=== PATIENT | female | born 1975 | race Caucasian/White ===

== ENCOUNTER 2016-05-16 09:10 | Emergency (ER) | payer BC ==
[2016-05-16 10:08] VITALS: BP 125/75
--- NOTE | 2016-05-16 10:21 | UC ---
Ear Complaint HPI - HPI Summary HPI Summary: terrible left ear pain started 2 nights ago. Progressive worsening. No URI symptoms. No trauma. No fever. No drainage. Now pain extends down below left mandible. Hurts to push on outside of ear. - History of Current Complaint Chief Complaint: UCEar Stated Complaint: LEFT EAR PAIN Time Seen by Provider: 05/16/16 10:07 Hx Obtained From: Patient Hx Last Menstrual Period: 05/14/16 Onset/Duration: Gradual Onset, Lasting Days - 2 Severity Initially: Mild Severity Currently: Severe Aggravating Factors: Nothing Alleviating Factors: Heat Associated Signs/Symptoms: Negative: Discharge, Hearing Loss, Foreign Body Sensation, Trauma to Ear, Swelling @, URI Symptoms - Allergies/Home Medications Allergies/Adverse Reactions: Allergies Allergy/AdvReac Type Severity Reaction Status Date / Time Edetic Acid [From Diprivan] Allergy Intermediate Tachycardia Verified 05/16/16 10:01 Egg Phospholipids Allergy Intermediate Tachycardia Verified 05/16/16 10:01 [From Diprivan] Glycerin [From Diprivan] Allergy Intermediate Tachycardia Verified 05/16/16 10: 01 Latex Allergy Intermediate Hives Verified 05/16/16 10:01 Propofol [From Diprivan] Allergy Intermediate Tachycardia Verified 05/16/16 10: 01 Home Medications: Home Medications Ibuprofen TAB* [Advil TAB*] 400 mg PO Q6H PRN 05/16/16 [History Confirmed ] Megestrol TAB* [Megace TAB*] 40 mg PO DAILY 05/16/16 [History Confirmed 05/16/16 ] PMH/Surg Hx/FS Hx/Imm Hx Previously Healthy: Yes Endocrine History Of: Reports: Thyroid Disease - Hypothyroidism Denies: Diabetes Cardiovascular History Of: Denies: Hypertension, Pacemaker/ICD GI/ History Of: Denies: Renal Disease - Surgical History Surgical History: Yes Surgery Procedure, Year, and Place: gallbladder, stent placed in pancrease Mar 2012-removed . 2 TUMORS REMOVE FROM UTERUS IN 03/2015. 8 LAPAROSCOPY - Family History Known Family History: Negative: Renal Disease, Seizure Disorder - Social History Occupation: Employed Full-time Lives: With Family Alcohol Use: Rare Substance Use Type: None Smoking Status (MU): Never Smoked Tobacco - Immunization History Most Recent Influenza Vaccination: Not the Season Review of Systems Constitutional: Negative Skin: Negative Eyes: Negative ENT: Ear Ache Respiratory: Negative Cardiovascular: Negative Gastrointestinal: Negative Genitourinary: Negative Motor: Negative Neurovascular: Negative Musculoskeletal: Negative Neurological: Negative Psychological: Negative All Other Systems Reviewed And Are Negative: Yes Physical Exam Triage Information Reviewed: Yes Appearance: Well-Appearing, Well-Nourished, Pain Distress - crying with pain, holding warm compress on ear Vital Signs: Initial Vital Signs Temp 98.6 F 05/16/16 10:02 Pulse 99 05/16/16 10:02 Resp 20 05/16/16 10:02 BP 125/75 05/16/16 10:02 Pulse Ox 100 05/16/16 10:02 Vital Signs Reviewed: Yes Eye Exam: Normal ENT: Positive: Pharynx normal, Nasal congestion, TMs normal, Other: - left ear canal is reddened and swollen. There is no rash or blistering appearance inside or outside ear canal. No palpable swollen nodes, though she says it is tender to touch in left submandib area. Negative: TM bulging, TM dull, TM red, Tonsillar swelling, Tonsillar exudate, Trismus, Muffled/hoarse voice Neck exam: Normal Respiratory Exam: Normal Cardiovascular Exam: Normal Musculoskeletal Exam: Normal Neurological Exam: Normal Psychological Exam: Normal Skin Exam: Normal Ear Complaint Course/Dx - Differential Dx/Diagnosis Differential Diagnosis/HQI/PQRI: Mastoiditis, Otitis Externa, Otitis Media, Trigeminal Nueralgia, Other - zoster Provider Diagnoses: otitis externa Discharge - Discharge Plan Condition: Stable Disposition: HOME Prescriptions: Ciprofloxacin TAB* [Cipro Tab*] 500 mg PO BID #20 tab Hydrocodone-Acetaminophen [Hydrocodone/Acetaminophen 5-325 mg] 1 - 2 tab PO Q6HR PRN #14 tab MDD 6 tab PRN Reason: Pain Neomyc/Polym/HC 1% OTIC SUSP* [Cortisporin Otic Susp 1%*] 4 drop LEFT EAR QID # 1 btl Patient Education Materials: Otitis Externa (ED) Referrals: Dia Luna MD [Primary Care Provider] -
== END 2016-05-16 10:21 | disposition home or self-care (01) ==
LOC: UCCORT 09:10
DX: H60.92 Unspecified otitis externa, left ear (principal); Z88.8 Allergy status to other drugs, medicaments and biological substances; Z90.49 Acquired absence of other specified parts of digestive tract
CPT/HCPCS: 99212; G0463

== ENCOUNTER 2016-05-23 09:16 | Emergency (ER) | payer BC ==
--- NOTE | 2016-05-23 09:59 | UC ---
Headache HPI - HPI Summary HPI Summary: Two days ago she was placed on cipro and neomycin left ear drops. she is not improving. She believes she had a fever on this past Monday. she has sinus and ear pain. no vision changes. - History Of Current Complaint Stated Complaint: EAR COMPLAINT Time Seen by Provider: 05/23/16 09:45 Hx Obtained From: Patient Hx Last Menstrual Period: 05/14/16 Onset/Duration: Gradual Onset, Lasting Days Onset Of Symptoms: Gradual Timing: Constant Character: Pressure Location of Headache: Diffuse - left face, left neck. Aggravating Factor: Position Change - eye movement causes some more pain as well. Allevating Factors: Rest Associated Signs And Symptoms: Positive: Sinus Pressure, Fever. Negative: Nausea, Vomiting, Neck Pain, Neck Stiffness, Decreased LOC, Visual Changes - Risk Factors SAH Risk Factors: Negative Meningitis Risk Factors: Negative - Allergies/Home Medications Allergies/Adverse Reactions: Allergies Allergy/AdvReac Type Severity Reaction Status Date / Time Edetic Acid [From Diprivan] Allergy Intermediate Tachycardia Verified 05/23/16 09:54 Egg Phospholipids Allergy Intermediate Tachycardia Verified 05/23/16 09:54 [From Diprivan] Glycerin [From Diprivan] Allergy Intermediate Tachycardia Verified 05/23/16 09: 54 Latex Allergy Intermediate Hives Verified 05/23/16 09:54 Propofol [From Diprivan] Allergy Intermediate Tachycardia Verified 05/23/16 09: 54 Home Medications: Home Medications Hydrocodone-Acetaminophen [Hydrocodone/Acetaminophen 5-325 mg] 1 tab PO Q6HR PRN 05/23/16 [History Confirmed 05/23/16] PMH/Surg Hx/FS Hx/Imm Hx Endocrine History Of: Reports: Thyroid Disease - Hypothyroidism Denies: Diabetes Cardiovascular History Of: Denies: Hypertension, Pacemaker/ICD GI/ History Of: Denies: Renal Disease - Surgical History Surgical History: Yes Surgery Procedure, Year, and Place: gallbladder, stent placed in pancrease Mar 2012-removed . 2 TUMORS REMOVE FROM UTERUS IN 03/2015. 8 LAPAROSCOPY - Family History Known Family History: Positive: None - no sinus disease in the family. Negative: Renal Disease, Seizure Disorder - Social History Alcohol Use: Rare Substance Use Type: None Smoking Status (MU): Never Smoked Tobacco - Immunization History Most Recent Influenza Vaccination: Not the Season Review of Systems All Other Systems Reviewed And Are Negative: Yes Physical Exam Triage Information Reviewed: Yes Appearance: Well-Appearing, No Pain Distress, Well-Nourished Vital Signs Reviewed: Yes Eye Exam: Normal Eyes: Positive: Conjunctiva Clear. Negative: Conjunctiva Inflamed ENT: Positive: Normal ENT inspection - No proptosis or swelling around the eye. EOM appear intact., Pharynx normal, Pharyngeal erythema, TMs normal - left pinna tenderness but no tragal tendernss. no swelling of the face or neck. no signficant adenopathy. there is diffuse L frontal and maxilla tenderness. there is tenderness with otosscopic exam. there is some thickening of the canal and some dried exudate.. Negative: Nasal congestion, Nasal drainage, TM bulging, TM dull, TM red, Tonsillar swelling, Tonsillar exudate, Trismus, Muffled/hoarse voice Neck exam: Normal Neck: Positive: Supple, Nontender, No Lymphadenopathy. Negative: Nuchal Rigidity, Tenderness @, Enlarged Nodes @ Respiratory: Positive: Chest non-tender, Lungs clear, Normal breath sounds, No respiratory distress, No accessory muscle use. Negative: Respiratory distress Cardiovascular Exam: Normal Cardiovascular: Positive: RRR, No Murmur, Pulses Normal, Brisk Capillary Refill Abdomen Description: Positive: Nontender, No Organomegaly, Soft Musculoskeletal Exam: Normal Musculoskeletal: Positive: Strength Intact, ROM Intact, No Edema Neurological Exam: Normal Neurological: Positive: Alert, Muscle Tone Normal, Fatigued Psychological Exam: Normal Skin Exam: Normal Headache Course/Dx - Course Course Of Treatment: she has 8 days or so of what is c/w otitis externa with radiating pain down the neck and around the face. no evidence of osteomyelitis or severe cellulitis or mastoiditis. - Differential Dx/Diagnosis Differential Diagnosis/HQI/PQRI: Epidural Hematoma, Subdural Hematoma, Meningitis, Migraine, Subarachnoid Hemorrhage, Temporal Arteritis, Viral Syndrome Provider Diagnoses: otitis external left with mild facial cellulitis. Discharge - Discharge Plan Condition: Good Disposition: HOME Prescriptions: Amoxicillin/Clavulanate TAB* [Augmentin TAB 875*] 875 mg PO BID #14 tab Ciproflox/Dexameth OTIC.SUSP* [Ciprodex OTIC.SUSP*] 2 drop .SEE ORDER BID #1 btl Patient Education Materials: Cellulitis (ED) Referrals: Dia Luna MD [Primary Care Provider] - Nirav Conteh MD [Medical Doctor] -
[2016-05-23 10:00] VITALS: BP 129/76
--- NOTE | 2016-05-23 10:23 | RAD ---
Indication: Left frontal and maxilla tenderness for [address] of the sinuses was obtained in the axial plane. Sagittal and coronal reconstructed images were obtained. The maxillary sinuses, ethmoid air cells and frontal sinuses are clear without evidence of mucosal thickening or air-fluid levels. Ostiomeatal units appear patent. The sphenoid sinuses are also clear without evidence of mucosal thickening or paranasal sinuses. Mastoid air cells and grossly unremarkable. There is mild nasal septal deviation towards the right. No paradoxical turn's of the middle turbinates or dimitrios bullosa is identified. IMPRESSION: No evidence of sinusitis is present.
== END 2016-05-23 11:03 | disposition home or self-care (01) ==
LOC: UCCORT 09:16
DX: H60.92 Unspecified otitis externa, left ear (principal); L03.211 Cellulitis of face; Z90.49 Acquired absence of other specified parts of digestive tract
CPT/HCPCS: 70486; 99212; G0463

== ENCOUNTER 2016-09-01 09:06 | Emergency (ER) | payer BC ==
[2016-09-01 09:21] VITALS: BP 113/78
--- NOTE | 2016-09-01 10:18 | UC ---
Knee Pain HPI - HPI Summary HPI Summary: right knee pain since injured last night. Playing softball, right foot went into a hole and she fell, with awareness of lateral dislocation of the patella laterally. Patella went back into place, but had immediate onset of swelling and pain, with inability to weight bear. Using brace supplied on site by local sports med physician. Here for assessment due to ongoing pain and swelling and inability to bear weight. - History of Current Complaint Chief Complaint: UCLowerExtremity Stated Complaint: RIGHT KNEE PAIN Time Seen by Provider: 09/01/16 09:22 Hx Obtained From: Patient Hx Last Menstrual Period: 08/31/16 Onset/Duration: Sudden Onset Severity Initially: Moderate Severity Currently: Moderate Character: Aching, Throbbing, Stiffness Aggravating Factor(s): Movement, Weight Bearing, Stairs Alleviating Factor(s): Cold, OTC Meds - using ibuprofen 800mg Associated Signs And Symptoms: Positive: Swelling Able to Bear Weight: No Related History: Similar Episode/Dx as - history of left ACL tear age 16, managed conservatively - Risk Factors Septic Arthritis Risk Factor: Negative Gout Risk Factor: Negative - Allergies/Home Medications Allergies/Adverse Reactions: Allergies Allergy/AdvReac Type Severity Reaction Status Date / Time Edetic Acid [From Diprivan] Allergy Intermediate Tachycardia Verified 09/01/16 09:17 Egg Phospholipids Allergy Intermediate Tachycardia Verified 09/01/16 09:17 [From Diprivan] Glycerin [From Diprivan] Allergy Intermediate Tachycardia Verified 09/01/16 09: 17 Latex Allergy Intermediate Hives Verified 09/01/16 09:17 Propofol [From Diprivan] Allergy Intermediate Tachycardia Verified 09/01/16 09: 17 PMH/Surg Hx/FS Hx/Imm Hx Previously Healthy: Yes Endocrine History: Hypothyroidism Other GI/ History: fibroid tumor - Surgical History Surgical History: Yes Surgery Procedure, Year, and Place: gallbladder, stent placed in pancrease Mar 2012-removed . 2 TUMORS REMOVE FROM UTERUS IN 03/2015. 8 LAPAROSCOPY - Family History Known Family History: Positive: None - no sinus disease in the family. Negative: Renal Disease, Seizure Disorder - Social History Occupation: Employed Full-time Lives: With Family Alcohol Use: Rare Substance Use Type: None Smoking Status (MU): Never Smoked Tobacco - Immunization History Most Recent Influenza Vaccination: Not the 2015/2016 Season Review of Systems Constitutional: Negative Skin: Negative Eyes: Negative ENT: Negative Respiratory: Negative Cardiovascular: Negative Gastrointestinal: Negative Genitourinary: Other - prolonged menses post use of megace for fibroid tumor of the uterus. Currently menstruating. Motor: Negative Neurovascular: Negative Musculoskeletal: Negative Neurological: Negative Psychological: Negative All Other Systems Reviewed And Are Negative: Yes Physical Exam Triage Information Reviewed: Yes Appearance: Well-Appearing, Pain Distress - moderate. Vital Signs: Initial Vital Signs Temp 97.8 F 09/01/16 09:15 Pulse 78 09/01/16 09:15 Resp 16 09/01/16 09:15 BP 113/78 09/01/16 09:15 Pulse Ox 99 09/01/16 09:15 Vital Signs Reviewed: Yes Respiratory: Positive: Lungs clear, Normal breath sounds Cardiovascular: Positive: RRR, No Murmur Musculoskeletal: Positive: ROM Limited @ - right knee, flexion limited to 45 degrees, can fully extend. Moderate effusion limits exam. Lachmann negative, does not appear to have instability in the knee with lateral or medial stress. Psychological Exam: Normal Diagnostics - Laboratory Diagnostic Studies Completed/Ordered: normal xray of the right knee Knee Pain Course/Dx - Course Course Of Treatment: continue brace, no weight bearing, referral to orthopedics. - Differential Dx/Diagnosis Provider Diagnoses: acute right knee injury Discharge - Discharge Plan Condition: Stable Disposition: HOME Patient Education Materials: Swollen Knee Joint (ED) Referrals: Dia Luna MD [Primary Care Provider] - Gwen Ross MD [Medical Doctor] - Additional Instructions: Please call Dr. Ross's office to arrange an evaluation within the next 4 or 5 days. Use crutches and continue use of the knee brace. Continue regular ice to the knee. Conitnue ibuprofen 800mg three times daily for control of pain.
--- NOTE | 2016-09-01 11:21 | RAD ---
Indication: Pain after patellar dislocation/relocation. Comparison: None. Technique: RIGHT knee: RIGHT views. Report: Normal articular alignment and preserved joint spaces. The patella is centered at the femoral trochlea. Negative for patella ernst. Moderate suprapatellar joint effusion without gross fat fluid level. No fracture or osteochondral lesion evident. Unremarkable soft tissue contours. IMPRESSION: Moderate suprapatellar joint effusion without additional finding.
== END 2016-09-01 10:50 | disposition home or self-care (01) ==
LOC: UCCORT 09:06
DX: S89.91XA Unspecified injury of right lower leg, initial encounter (principal); W18.30XA Fall on same level, unspecified, initial encounter; Y93.64 Activity, baseball; Y92.320 Baseball field as the place of occurrence of the external cause; E03.9 Hypothyroidism, unspecified; Z90.49 Acquired absence of other specified parts of digestive tract
CPT/HCPCS: 99213; G0463

== ENCOUNTER → 2017-05-09 17:35 | Emergency (ER) | payer BC ==
--- OUTSIDE RECORDS SUMMARY | 2017-05-09 17:41 | XMS REPORT ---
:1975 Author Organization [facility] Address [address] [place] [address] Care Team Providers Name Role Phone Leslie Gomesrie Unavailable Unavailable PROBLEMS ALLERGIES No Information ENCOUNTERS IMMUNIZATIONS No Known Immunizations SOCIAL HISTORY No smoking Hx information available REASON FOR REFERRAL FUNCTIONAL STATUS PLAN OF CARE VITAL SIGNS MEDICATIONS Unknown Medications PROCEDURES No Known procedures RESULTS No Results REASON FOR VISIT MEDICAL (GENERAL) HISTORY
[2017-05-09 18:08] VITALS: BP 116/79
--- NOTE | 2017-05-09 18:36 | UC ---
Laceration HPI - HPI Summary HPI Summary: Pt presents with laceration to her midline forehead. She tells me that she was cleaning her windows on a ladder earlier today and slipped from the ladder hitting her head against the window sill sustaining a laceration. No LOC. Denies headache or dizziness currently. Thinks her last tetanus was within the last 5 years - History Of Current Complaint Chief Complaint: UCHeadInjury Stated Complaint: HEAD LACERATION Time Seen by Provider: 05/09/17 18:36 Hx Obtained From: Patient Hx Last Menstrual Period: April 08, 2016 Laceration Location: Head Onset/Duration: Sudden Onset Severity: Moderate Pain Intensity: 6 Pain Scale Used: 0-10 Numeric - Allergies/Home Medications Allergies/Adverse Reactions: Allergies Allergy/AdvReac Type Severity Reaction Status Date / Time propofol [From Diprivan] Allergy See Comment Verified 05/09/17 18:10 PMH/Surg Hx/FS Hx/Imm Hx Previously Healthy: Yes Endocrine History: Hypothyroidism - Surgical History Surgical History: Yes Surgery Procedure, Year, and Place: gallbladder, stent placed in pancrease Mar 2012-removed . 2 TUMORS REMOVE FROM UTERUS IN 03/2015. 8 LAPAROSCOPY ENDOMETRIOSIS - Family History Known Family History: Positive: None - no sinus disease in the family. Negative: Renal Disease, Seizure Disorder - Social History Occupation: Employed Full-time Lives: With Family Alcohol Use: Rare Substance Use Type: None Smoking Status (MU): Never Smoked Tobacco - Immunization History Most Recent Influenza Vaccination: Not the Season Review of Systems Constitutional: Negative Skin: Other - Laceration to forehead Respiratory: Negative Cardiovascular: Negative Neurological: Negative Psychological: Negative All Other Systems Reviewed And Are Negative: Yes Physical Exam Triage Information Reviewed: Yes Appearance: Well-Appearing, No Pain Distress, Well-Nourished Vital Signs: Initial Vital Signs Temp 98.0 F 05/09/17 18:03 Pulse 76 05/09/17 18:03 Resp 16 05/09/17 18:03 BP 116/79 05/09/17 18:03 Pulse Ox 100 05/09/17 18:03 Vital Signs Reviewed: Yes Eyes: Positive: Other: - EOMI. PERRLA Neck: Positive: Supple, Other: - FROM. NTTP Respiratory: Positive: Lungs clear, Normal breath sounds, No respiratory distress Cardiovascular: Positive: RRR, No Murmur, Pulses Normal Neurological: Positive: Alert, Other: - CN II-XII grossly intact Psychological: Positive: Age Appropriate Behavior Skin: Positive: Other - 1.0cm superficial crescent shaped laceration to midline upper forehead. Well approximated. Laceration Repair - Laceration Repair 1 Laceration Size After Repair: Length (cm) - 1.0 Cleansing Completed Via Routine Prep: Yes Closure Material: Skin Adhesive Laceration Course/Dx - Course/Dx Course Of Treatment: I discussed with the patient that sutures would insure the best approximation, lowest risk of scar formation, and most appropriate healing process. She was adamant that she did not want sutures and wants dermabond glue. The laceration was well approximated and glued. Dressed with telfa. - Differential Dx - Laceration/Wound Provider Diagnoses: 1.0cm laceration to forehead Discharge - Discharge Plan Condition: Stable Disposition: HOME Patient Education Materials: Skin Adhesive Care (ED) Referrals: Dia Luna MD [Primary Care Provider] - Additional Instructions: If you develop a fever, shortness of breath, chest pain, new or worsening symptoms - please call your PCP or go to the ED.
== END | disposition home or self-care (01) ==
LOC: UCEAST 17:35
DX: S01.81XA Laceration without foreign body of other part of head, initial encounter (principal); W11.XXXA Fall on and from ladder, initial encounter; Y93.E9 Activity, other interior property and clothing maintenance; Y92.009 Unspecified place in unspecified non-institutional (private) residence as the place of occurrence of the external cause; E03.9 Hypothyroidism, unspecified; Z88.8 Allergy status to other drugs, medicaments and biological substances
CPT/HCPCS: 12001; 12011; 99211; G0463

== ENCOUNTER 2018-07-15 09:32 | Emergency (ER) | payer OTHER ==
--- OUTSIDE RECORDS SUMMARY | 2018-07-15 10:14 | XMS REPORT | Continuity of Care Document ---
:1975 External Reference #:[id number] Author Name Santos Aguiar MD Address [address] [place] [address] Care Team Providers Name Role Phone Dia Mccauley MD Care Team Information Technology Risk Intern Unavailable Dia Mccauley MD Primary Care Physician Unavailable Payers Date Identification Numbers Payment Provider Subscriber Effective: 2018 Policy Number: [id number] [facility] Yonny Peng PayID: [id number] [address] [place] [address] Expires: 2018 Policy Number: [id number] Conor Peng PayID: [id number] [address] [address] [place] [address] Effective: 2011 Policy Number: [id number] Conor Peng Expires: 2017 PayID: [id number] [address] [address] [place] [address] Advance Directives Description No Information Available Problems Active Problems Provider Date Gallbladder calculus with acute cholecystitis and Kolton Hernandez MD Onset: no obstruction Family History Date Family Member(s) Observation Comments Father Heart Disease Onset: (age 55 Years) Father Myocardial Infarction Father wore glasses Mother due to Cancer () Mother Colon Cancer Onset: (age 40 Years) Mother Ovarian Cancer Children 1 healthy First Daughter Alive First Daughter 14 Siblings 1 brother/healthy First Brother Alive First Brother 45 Social History Type Date Description Comments Sex Unknown Marital Status Lives With Spouse Lives With Diet Patient is on a low sodium diet Diet Patient is on a low fat diet Occupation Spiritual Advisor Tobacco Use Start: Unknown Never Smoked Cigarettes ETOH Use Rarely consumes alcohol Tobacco Use Start: Unknown Patient has never smoked Recreational Drug Use Denies Drug Use Smoking Status Reviewed: 07/09/18 Patient has never smoked Allergies, Adverse Reactions, Alerts Active Allergies Reaction Severity Comments Date Diprivan HEART PALPATATIONS 08/10/2011 Latex hives/itching 08/10/2011 Medications Active Medications SIG Qnty Indications Ordering Provider Date Synthroid 1 by mouth every Unknown 95mcg Tablets day History Medications No Active Medications Unknown 08/10/2011 - 09/26/2017 Immunizations Description No Information Available Vital Signs Date Vital Result Comment 09/22/2011 9:37am BP Systolic Sitting Right Arm 122 mmHg BP Diastolic Sitting Right Arm 82 mmHg Body Temperature 97.7 F Height 65 inches 5'5" Weight 130.00 lb BMI (Body Mass Index) 21.6 kg/m2 08/10/2011 9:25am BP Systolic Sitting Left Arm 122 mmHg BP Diastolic Sitting Left Arm 92 mmHg Heart Rate 75 /min Respiratory Rate 18 /min Height 65 inches 5'5" Weight 134.00 lb w clothes & shoes BMI (Body Mass Index) 22.3 kg/m2 Results Test Date Facility Test Result H/L Range Note Xray 10/28/2011 [facility] Radiology MRI, Abdomen, <pending> [address] [facility] [address] [place] [address] Contrast [phone] Laboratory test 09/29/2011 [facility] Gastric See Note [address] Biopsy/[place] [address] [phone] Laboratory test 09/22/2011 [facility] Lipase 34 U/L 22-51 finding [phone] Liver Function 09/22/2011 [facility] Total Protein 6.5 GM/DL 6.2-8.1 Tests [phone] Albumin 4.1 GM/DL 3.6-5.4 Globulin 2.4 GM/DL 2-4 Albumin/Globulin Ratio 1.7 1-3 Bilirubin Total 0.5 mg/dL 0.4-1.5 2 Bilirubin Direct 0.1 mg/dL 0.1-0.5 Indirect Bilirubin 0.4 mg/dL 0.3-1.0 3 Alkaline Phosphatase 62 U/L 30-110 Alt (SGPT) 29 U/L 14-54 Ast (Sgot) 22 U/L 12-42 Laboratory test 09/08/2011 [facility] Gallbladder See Note 4 finding [address] [place] [address] [phone] Liver Function 09/08/2011 [facility] Total Protein 5.8 g/dL Low 6.3-8.0 Tests [address] [place], [place] [id number] [phone] Albumin 3.4 g/dL Low 3.5-5.0 Globulin 2.4 g/dL 1.9-4.3 Alb/Glob 1.4 ratio Bilirubin,Total 0.6 mg/dL 0.2-1.2 Bilirubin,Direct 0.1 mg/dL 0.1-0.4 Bilirubin,Indirect 0.5 mg/dL 0.0-0.9 Sgot/Ast 131 U/L High 16-40 SGPT/Alt 422 U/L High 30-65 5 Alkaline Phosphatase 76 U/L 50-136 Basic Metabolic Panel 09/08/2011 [facility] Glucose 100 mg/dL 76-115 [address] [place], [place] [id number] [phone] BUN 6 mg/dL 5-23 Creatinine 1.0 mg/dL 0.5-1.4 Glom Filtration Rate, Estimate >60 mL/min >60 If >60 mL/min >60 6 BUN/Creat 6.0 ratio Sodium 143 mmol/L 136-145 Potassium 3.6 mmol/L 3.5-5.1 Chloride 108 mmol/L High 98-107 Carbon Dioxide 28 mEq/L 18-29 Anion Gap 11 mEq/L 8-16 Calcium 8.6 mg/dL 8.5-10.1 Laboratory test 09/08/2011 [facility] Lipase 108 U/L 28-380 finding [address] [place] [address] [phone] CBC 09/08/2011 [facility] White Blood 5.3 K/uL 3.1-10.7 [address] [place] [address] [phone] Red Blood Count 4.39 M/uL 3.90-5.40 Hemoglobin 13.7 gm/dL 11.6-15.8 Hematocrit 39.9 % 36.0-46.1 Mean Cell Volume 90.9 fl 80.9-99.0 Mean Corpuscular HGB 31.2 pg 25.9-32.7 Mean Corpuscular HGB Conc 34.3 g/dL 30.8-34.3 Platelet Count 202 K/uL 155-360 Red Cell Distri Width %CV 12.0 % 11.7-14.4 Mean Platelet Volume 10.9 fL 8.9-12.4 1 OPERATION/PROCEDURE Colonoscopy, EGD DIAGNOSIS: PART 1: "CECAL POLYPECTOMY": BENIGN, NONDYSPLASTIC AND NONINFLAMED COLONIC MUCOSA. PART 2: "DUODENAL BIOPSIES": ESSENTIALLY NORMAL DUODENAL MUCOSA. PART 3: "STOMACH BIOPSIES": CHRONIC GASTRITIS WITH FEATURES CONSISTENT WITH 'CHEMICAL INJURY' SUCH ALKALINE REFLUX. NO HELICOBACTER SEEN WITH SPECIAL STAIN. BERTRAND/gabby GROSS Part 1; "CECAL POLYP". The specimen is received in an appropriately labeled container. This contains three rounded melendez colored pieces of soft tissue measuring up to 0.2 cm.; filtered and submitted in toto within a single cassette. Part 2; "DUODENAL BIOPSIES". The specimen is received in an appropriately labeled container. This contains three rounded melendez colored pieces of soft tissue measuring up to 0.5 cm.; filtered and submitted in toto within a single cassette. Part 3; "STOMACH BIOPSIES". The specimen is received in an appropriately labeled container. This contains three rounded melendez colored pieces of soft tissue measuring up to 0.3 cm.; filtered and submitted in toto within a single cassette. TIKI/gabby MICROSCOPIC Part 1: Sections reveal mildly edematous fragments of colonic mucosa. There is no significant inflammation. There are no specific features such as granulomas, subepithelial collagen thickening, viral nuclear changes, abnormal eosinophil or lymphocytic infiltrates, vascular changes or pseudomembranes noted. Part 2: Sections reveal duodenal mucosa with well-oriented crypts, with normal maturation of lining cells to the surface. The stroma contains a normal degree of lymphoplasmacytic infiltration. Part 3: Sections show glandular elongation, tortuosity, and hypercellularity of gastric pits, foveolar hyperplasia, and villiform transformation of the mucosa. The glands appear more angular than usual. Foveolar cells show mild mucin depletion and vacuolization. There is capillary congestion, vasodilatation and edema. Smooth muscle fibers extend high into the lamina propria. There are sparse amounts of chronic inflammatory cells. There are no Helicobacter-type bacteria identified with Warthin-Starry staining. The controls are adequate. PRE OPERATIVE DIAGNOSIS Family history of colon cancer, RUQ pain. REVIEW CODE CODE: I KATJA Estes MD 09/30/11 1253 2 A metabolite of Naproxen, O-desmethylnaproxen, has been shown to interfere with the Monica- method for measuring total bilirubin. Samples from patients who have taken Naproxen have shown spurious elevation in total bilirubin levels. 3 Please note updated reference range, effective 10/08/09 4 OPERATION/PROCEDURE Lap. reg. DIAGNOSIS: "GALLBLADDER, CHOLECYSTECTOMY": CHRONIC CHOLECYSTITIS, CHOLESTEROLOSIS AND CHOLELITHIASIS. NO EVIDENCE OF DYSPLASIA NOR NEOPLASIA APPRECIATED. TIKI/gabby GROSS The specimen is received in a single container additionally labeled "GALLBLADDER". This contains a gallbladder with green shiny smooth surface and measures 9.8 x 3.5 x 2.8 cm. in overall dimensions. There is no visible wall defect. The wall has a uniform thickness of 0.3 cm. The mucosal surface is velvety with robledo reticular discoloration. Three dozen stones are noted with a diameter up to 0.3 cm. No stones obstruct the neck. Tech Ed/Woodshop Teacher sections are submitted within a single cassette. WS/clf MICROSCOPIC Sections show gallbladder mucosa lined by columnar epithelium with focal synechia, and Rokitansky-Aschoff sinus formation. The submucosa has a mild infiltrate of lymphocytes and plasma cells. Foamy histiocytes are noted within the tips of papillae. The muscular wall is slightly fibrotic and hypertrophied. PRE OPERATIVE DIAGNOSIS RUQ pain with gallstone REVIEW CODE CODE: I FRAN Suarez MD 1232 5 Result confirmed by repeat analysis. 6 Note: Persistent reduction for 3 months or more in an eGFR <60 mL/min/1.73 m2 defines CKD. Patients with eGFR values >/=60 mL/min/1.73 m2 may also have CKD if evidence of persistent proteinuria is present. The original MDRD equation for estimated GFR is not valid for patients less than 18 years of age. Additional information may be found at www.kdoqi.org. Procedures Date Code Description Status 07/09/2018 03402 Eye Exam Est Patient Comprehensive Completed 02/20/2018 70835 Eye Exam Est Patient Comprehensive Completed 09/26/2017 55252 Eye Exam New Patient Comprehensive Completed 09/08/2011 86833 Laparoscopy; cholecystectomy Completed 09/08/2011 09547 Anesthesia, Upper Abdomen Surgery Not Otherwise Spec Completed 03/20/2011 54747886 Mammogram Completed Encounters Type Date Location Provider Dx Diagnosis Office Visit 10/27/2017 Ophthalmology Santos Aguiar MD H35.89 Other specified 9:15a retinal disorders Office Visit 09/06/2011 Surgical Office [facility] 574.10 Calculus Gallbladder 11:14a Terence Franco W/ Other M.Jake Cholecystitis W/O Obstruction Office Visit 08/10/2011 Surgical Office Kolton Hernandez MD 574.10 Calculus Gallbladder 9:20a W/ Other Cholecystitis W/O Obstruction Plan of Treatment 07/09/2018 - Santos Aguiar MDH04.123 Dry eye syndrome of bilateral lacrimal glandsComments:- for irritation/discomfort, please consider:- neomycin/polymyxin /dexamethasone (pink top) 1 drop left eye 4 times daily- warm compresses: baby shampoo on a wash cloth, hold on closed eyelid and brush lashes- can continue with artificial tears both eyes- consider ointment at night- can consider punctal occlusion or restasisFollow up:please call if there isn't improvement in the [id number] Other specified retinal disordersComments:- rpe pigment clumping with contour present in the left eye, superior/temporal- has had retina eval;follow
[2018-07-15 10:19] VITALS: BP 125/84
--- NOTE | 2018-07-15 10:54 | UC ---
Respiratory Complaint HPI - HPI Summary HPI Summary: Pt presents with c/o productive cough, fever, chills, sob X 3 days. - History of Current Complaint Chief Complaint: UCRespiratory Stated Complaint: FEVER, SORE THROAT, COUGH Time Seen by Provider: 07/15/18 10:33 Hx Obtained From: Patient Hx Last Menstrual Period: 06/01/18 ?: No Onset/Duration: Sudden Onset, Lasting Days, Still Present Timing: Constant Severity Initially: Mild Severity Currently: Moderate Pain Intensity: 0 Character: Cough: Productive, Sputum Description: - green, thick Aggravating Factors: Exertion, Deep Breaths, Recumbent Position Alleviating Factors: Nothing Associated Signs And Symptoms: Positive: Fever, URI, Nasal Congestion - Risk Factors Pulmonary Embolism Risk Factors: Negative Cardiac Risk Factors: Negative Pseudomonas Risk Factors: Negative Tuberculosis Risk Factors: Negative - Allergies/Home Medications Allergies/Adverse Reactions: Allergies Allergy/AdvReac Type Severity Reaction Status Date / Time latex Allergy Hives Verified 07/15/18 10:16 propofol [From Diprivan] Allergy See Comment Verified 07/15/18 10:16 PMH/Surg Hx/FS Hx/Imm Hx Previously Healthy: Yes - Surgical History Surgical History: Yes Surgery Procedure, Year, and Place: gallbladder, stent placed in pancrease Mar 2012-removed . 2 TUMORS REMOVE FROM UTERUS IN 03/2015. 8 LAPAROSCOPY ENDOMETRIOSIS - Family History Known Family History: Positive: None - no sinus disease in the family. Negative: Renal Disease, Seizure Disorder - Social History Occupation: Employed Full-time Lives: With Family Alcohol Use: Occasionally Substance Use Type: None Smoking Status (MU): Never Smoked Tobacco Have You Smoked in the Last Year: No - Immunization History Most Recent Influenza Vaccination: Not the 2016/2016 Season Vaccination Up to Date: No Review of Systems All Other Systems Reviewed And Are Negative: Yes Constitutional: Positive: Fever, Chills, Fatigue Skin: Positive: Negative Eyes: Positive: Negative ENT: Positive: Sore Throat - resolved, Sinus Congestion Respiratory: Positive: Shortness Of Breath, Cough Cardiovascular: Positive: Negative Gastrointestinal: Positive: Negative Genitourinary: Positive: Negative Motor: Positive: Negative Neurovascular: Positive: Negative Musculoskeletal: Positive: Myalgia Neurological: Positive: Negative Psychological: Positive: Negative Is Patient Immunocompromised?: No Physical Exam Triage Information Reviewed: Yes Appearance: Ill-Appearing Vital Signs: Initial Vital Signs Temp 98.1 F 04/28/19 10:16 Pulse 99 07/15/18 10:16 Resp 18 07/15/18 10:16 BP 125/84 07/15/18 10:16 Pulse Ox 98 07/15/18 10:16 Vital Signs Reviewed: Yes Eye Exam: Normal ENT Exam: Other ENT: Positive: Nasal congestion Dental Exam: Normal Neck exam: Normal Respiratory: Positive: Wheezing - with cough Cardiovascular Exam: Normal Musculoskeletal Exam: Normal Neurological Exam: Normal Psychological Exam: Normal Skin Exam: Normal Respiratory Course/Dx - Differential Dx/Diagnosis Differential Diagnosis/HQI/PQRI: Bronchitis, Lower Resp Infection Provider Diagnosis: Bronchitis Discharge - Sign-Out/Discharge Documenting (check all that apply): Patient Departure All imaging exams completed and their final reports reviewed: No Studies - Discharge Plan Condition: Stable Disposition: HOME Prescriptions: Albuterol HFA INHALER* [Ventolin HFA Inhaler*] 1 - 2 puff INH Q6H PRN #1 mdi PRN Reason: Sob/Wheezing Azithromycin TAB* [Zithromax TAB (Z-MARIA DEL CARMEN) 250 mg #6 tabs] 2 tab PO .TODAY, THEN 1 DAILY #1 maria del carmen Benzonatate CAP* [Tessalon 100 MG CAP*] 200 mg PO Q8H PRN #30 cap PRN Reason: Cough Cetirizine* [ZyrTEC 10 MG TAB*] 10 mg PO DAILY #10 tab predniSONE TAB* [Deltasone 10 MG TAB*] 30 mg PO DAILY #12 tab Patient Education Materials: Acute Bronchitis (ED) Referrals: Dia Luna MD [Primary Care Provider] - If Needed - Billing Disposition and Condition Condition: STABLE Disposition: Home
== END 2018-07-15 11:09 | disposition home or self-care (01) ==
LOC: UCCORT 09:32
DX: J40 Bronchitis, not specified as acute or chronic (principal); M79.10 Myalgia, unspecified site; R09.81 Nasal congestion; Z88.4 Allergy status to anesthetic agent; Z91.040 Latex allergy status
CPT/HCPCS: 99212; G0463

== ENCOUNTER 2020-11-07 08:55 | Inpatient (IN) ==
[2020-11-07] MEDS ORDERED: NS 0.9% 1000 ml BAG 1,000 ML IV ONE (09:14)
[2020-11-07] MEDS ORDERED: Morphine 4 MG/ML VIAL (1 ml) IV ONE (09:21)
[2020-11-07] MEDS ORDERED: Ondansetron 4 mg VIAL 2 MG/ML 2 ml VIAL IV ONE (09:21)
[2020-11-07] MEDS ORDERED: Piperacillin/Tazobac ADVAN 3.375 GM in NS 0.9% 100 ml BAG 100 ML IV ONE ×2 (09:23→19:45)
[2020-11-07 10:17] LABS: ABS Eosinophils 0.1 10^3/ul (0-0.6); ABS Lymphocytes 1.3 10^3/ul (1.0-4.8); ABS Monocytes 0.9 10^3/ul (0-0.8); ABS Neutrophils 11.8 10^3/ul (1.5-7.7); Eosinophil % 0.6 %; Hematocrit 44 % (35-47); Hemoglobin 15.4 g/dL (12.0-16.0); Lymphocyte % 9.3 %; Mean Corpuscular HGB Conc 35 g/dL (31-36); Mean Corpuscular Hemoglobin 32 pg (27-31); Mean Corpuscular Volume 91 fL (80-97); Mean Platelet Volume 8.5 fL (7.4-10.4); Platelet Count 236 10^3/uL (150-450); Red Cell Distribution Width 13 % (10-15); White Blood Count 14.2 10^3/uL (3.5-10.8)
[2020-11-07 10:25] LABS: Urine Appearance Clear; Urine Bilirubin Negative (Negative); Urine Blood 2+ (Negative); Urine Color Straw; Urine Glucose Negative (Negative); Urine Ketones Negative (Negative); Urine Nitrite Negative (Negative); Urine Protein Negative (Negative); Urine Specific Gravity 1.004 (1.002-1.030); Urine Urobilinogen Negative (Negative)
[2020-11-07] MEDS ORDERED: HYDROmorphone 0.5 MG/0.5 ML SYRINGE IV SLOW PU PRN (10:27)
[2020-11-07 10:31] LABS: Urine Bacteria Absent (Absent); Urine Red Blood Cell 1+(3-5/hpf) (Absent); Urine White Blood Cell Trace(0-5/hpf) (Absent)
[2020-11-07] MEDS ORDERED: Zosyn per Pharmacy NOTE FOLLOW UP SCH (11:00)
[2020-11-07 11:12] LABS: Albumin 4.7 g/dL (3.2-5.2); Calcium 9.6 mg/dL (8.6-10.3); Potassium 4.1 mmol/L (3.5-5.0); Total Bilirubin 0.6 mg/dL (0.2-1.0)
[2020-11-07 11:18] LABS: Albumin/Globulin Ratio 1.6 (1-3); C Reactive Protein 115.67 mg/L (<8.01); EGFR African American 78.6 (>60); Globulin 2.9 g/dL (2-4); Total Protein 7.6 g/dL (6.4-8.9)
[2020-11-07] MEDS ORDERED: ZOSYN 3.375 GM Q8H per EXTENDED INFUSION IV SCH (14:00)
[2020-11-07] MEDS ORDERED: HYDROmorphone 0.5 MG/0.5 ML SYRINGE IV SLOW PU ONE (14:12)
[2020-11-07] MEDS: ZOSYN 3.375 GM Q8H per EXTENDED INFUSION IV SCH (16:19)
[2020-11-07] MEDS: HYDROmorphone 0.5 MG/0.5 ML SYRINGE IV SLOW PU PRN (22:43)
[2020-11-07] MEDS: Ondansetron 4 mg VIAL 2 MG/ML 2 ml VIAL IV PRN (22:43)
[2020-11-08] MEDS: ZOSYN 3.375 GM Q8H per EXTENDED INFUSION IV SCH ×3 (00:41→15:25)
[2020-11-08] MEDS: HYDROmorphone 0.5 MG/0.5 ML SYRINGE IV SLOW PU PRN (06:22)
[2020-11-08] MEDS: Ondansetron 4 mg VIAL 2 MG/ML 2 ml VIAL IV PRN ×2 (06:22→11:17)
[2020-11-08 07:20] LABS: ABS Basophils 0.1 10^3/ul (0-0.2); ABS Eosinophils 0.3 10^3/ul (0-0.6); ABS Lymphocytes 1.6 10^3/ul (1.0-4.8); ABS Monocytes 0.7 10^3/ul (0-0.8); ABS Neutrophils 7.9 10^3/ul (1.5-7.7); Eosinophil % 3.2 %; Hematocrit 37 % (35-47); Hemoglobin 12.8 g/dL (12.0-16.0); Lymphocyte % 15.3 %; Mean Corpuscular HGB Conc 35 g/dL (31-36); Mean Corpuscular Hemoglobin 32 pg (27-31); Mean Corpuscular Volume 92 fL (80-97); Mean Platelet Volume 8.7 fL (7.4-10.4); Platelet Count 186 10^3/uL (150-450); Red Blood Count 3.99 10^6 /uL (3.70-4.87); Red Cell Distribution Width 13 % (10-15); White Blood Count 10.6 10^3/uL (3.5-10.8)
[2020-11-08 07:33] LABS: Calcium 8.1 mg/dL (8.6-10.3); EGFR African American 96.1 (>60); EGFR Non-African American 79.4 (>60); Potassium 3.7 mmol/L (3.5-5.0)
[2020-11-08] MEDS ORDERED: Lactated Ringers 1000 ml BAG 1,000 ML IV SCH (08:00)
[2020-11-08] MEDS: Vitamin THERAPEUTIC TAB PO SCH (08:22)
[2020-11-08] MEDS ORDERED: Calcium Gluconate 2 GM in NS 0.9% 100 ml BAG 100 ML IV ONE (09:00)
[2020-11-08] MEDS: LIOTHYRONINE PO SCH (09:37)
[2020-11-08] MEDS: LEVOTHYROXINE PO SCH (09:37)
[2020-11-08] MEDS ORDERED: Prochlorperazine 5 mg/ml 2 ml VIAL (10 mg) IV PRN (12:39)
[2020-11-09] MEDS: ZOSYN 3.375 GM Q8H per EXTENDED INFUSION IV SCH ×4 (00:19→23:52)
[2020-11-09] MEDS: NS 0.9% 1000 ml BAG 1,000 ML IV SCH ×2 (02:40→12:17)
[2020-11-09 06:13] LABS: ABS Basophils 0.1 10^3/ul (0-0.2); ABS Eosinophils 0.3 10^3/ul (0-0.6); ABS Lymphocytes 1.7 10^3/ul (1.0-4.8); ABS Monocytes 0.5 10^3/ul (0-0.8); ABS Neutrophils 4.6 10^3/ul (1.5-7.7); Eosinophil % 4.3 %; Hematocrit 35 % (35-47); Hemoglobin 12.4 g/dL (12.0-16.0); Lymphocyte % 24.2 %; Mean Corpuscular HGB Conc 35 g/dL (31-36); Mean Corpuscular Hemoglobin 32 pg (27-31); Mean Corpuscular Volume 91 fL (80-97); Mean Platelet Volume 8.4 fL (7.4-10.4); Platelet Count 187 10^3/uL (150-450); Red Blood Count 3.83 10^6 /uL (3.70-4.87); Red Cell Distribution Width 12 % (10-15); White Blood Count 7.2 10^3/uL (3.5-10.8)
[2020-11-09 06:33] LABS: EGFR African American 100.5 (>60); EGFR Non-African American 83.1 (>60); Potassium 3.7 mmol/L (3.5-5.0)
[2020-11-09] MEDS: Vitamin THERAPEUTIC TAB PO SCH (08:08)
[2020-11-09] MEDS: LEVOTHYROXINE PO SCH (08:09)
[2020-11-09] MEDS: LIOTHYRONINE PO SCH (08:09)
[2020-11-09] MEDS ORDERED: Calcium Gluconate 3 GM in NS 0.9% 250 ml 250 ML IV ONE (10:30)
[2020-11-10] MEDS: NS 0.9% 1000 ml BAG 1,000 ML IV SCH (05:57)
[2020-11-10] MEDS: Vitamin THERAPEUTIC TAB PO SCH (08:05)
[2020-11-10] MEDS: LIOTHYRONINE PO SCH ×2 (08:08→08:13)
[2020-11-10] MEDS: LEVOTHYROXINE PO SCH ×2 (08:08→08:13)
[2020-11-10] MEDS: ZOSYN 3.375 GM Q8H per EXTENDED INFUSION IV SCH (08:14)
[2020-11-10 12:07] VITALS: BP 112/74
== END 2020-11-10 12:40 | disposition home or self-care (01) | DRG 872 ==
LOC: ED 08:55 → SSU 15:19 → SUATTDRO 15:34
PROVIDERS: ADMIT Internal Medicine; ATTEND Hospitalist